=== PATIENT | female | born 1995 | race Caucasian/White ===

== ENCOUNTER → 2018-03-11 | Outpatient (CLI) | payer OTHER ==
[~2018-03-11] MED LIST: AMOX250 PO; CEPH250A PO; CEPH500 PO; CODACE30 PO; DOCU100 PO; FERR325 PO; IBUP400; IBUP600 PO; IBUP800 PO; MEDR150I IM; NAPR375 PO; OXYACE5T PO; PROCODE120 PO; PROM25 PO; RXCEPH500 PO; RXCODACET PO; RXSULTRIDS PO; SULTRIDS PO; SULTRISS; TAMS.4ER PO; Ultram50 MG PO
[2018-03-12 09:24] LABS: Candida species (DNA Probe) Negative (NEGATIVE); G. vaginalis (DNA Probe) Positive (NEGATIVE); T. vaginalis (DNA Probe) Negative (NEGATIVE)
== END ==
LOC: LAB 09:00 → LAB SHORT 09:00
PROVIDERS: Physician Assistant
DX: N39.0 Urinary tract infection, site not specified (principal); N89.8 Other specified noninflammatory disorders of vagina
CPT/HCPCS: 87077; 87086; 87186; 87480; 87510; 87660

== ENCOUNTER → 2018-06-24 | Outpatient (CLI) | payer OTHER ==
[2018-06-27 01:13] LABS: CHLAMYDIA TRACHOMATIS, NAA Negative (Negative); NEISSERIA GONORRHOEAE, NAA Negative (Negative)
== END | disposition home or self-care (01) ==
LOC: LAB SHORT 14:51 → LAB 14:51
PROVIDERS: Advanced Practice Midwife
DX: Z11.3 Encounter for screening for infections with a predominantly sexual mode of transmission (principal)
CPT/HCPCS: 87491; 87591

== ENCOUNTER → 2018-12-05 | Outpatient (CLI) | payer OTHER | END | disposition home or self-care (01) | LOC: LAB SHORT 11:21 → LAB 11:21 | DX: Z34.80 Encounter for supervision of other normal pregnancy, unspecified trimester (principal) | CPT/HCPCS: 87081; 87653 ==

== ENCOUNTER 2018-12-27 16:05 | Inpatient (IN) | payer OTHER ==
[~2018-12-27] VITALS: Ht 153 cm; Wt 0.3 kg
[2018-12-27] MEDS ORDERED: CEPH500 (16:43)
[2018-12-27 16:46] LABS: BASOPHILS ABSOLUTE AUTO 0.04 K/mm3 (0.00-0.23); BASOPHILS PERCENT AUTO 0 % (0-2); EOSINOPHILS ABSOLUTE AUTO 0.15 K/mm3 (0.00-0.68); EOSINOPHILS PERCENT AUTO 1 % (0-6); Hematocrit 29.4 % (33.0-51.0); Hemoglobin 9.7 g/dL (11.5-16.0); IMMATURE GRAN ABSOLUTE AUTO 0.27 K/mm3 (0.00-0.10); IMMATURE GRAN PERCENT AUTO 3 % (0-1); LYMPHOCYTES ABSOLUTE AUTO 1.81 K/mm3 (0.84-5.20); LYMPHOCYTES PERCENT AUTO 17 % (21-46); MONOCYTES ABSOLUTE AUTO 0.94 K/mm3 (0.16-1.47); MONOCYTES PERCENT AUTO 9 % (4-13); Mean Corpuscular HGB 28.5 pg (26.0-34.0); Mean Corpuscular Volume 87 fL (80-100); Mean Platelet Volume 10.4 fL (9.1-12.4); NEUTROPHILS ABSOLUTE AUTO 7.73 K/mm3 (1.96-9.15); NEUTROPHILS PERCENT AUTO 71 % (41-73); Platelet Count 159 K/mm3 (150-400); RDW Coefficient Variation 13.4 % (11.7-14.2); RDW Standard Deviation 41.8 fL (35.1-46.3); White Blood Cell Count 10.94 K/mm3 (4.00-11.30)
--- NOTE | 2018-12-28 09:57 | NUR ---
CONSULT. BABY IS VERY SLEEPY, NOT RESPONDING TO STIMULATION. LESS THAN 6 HOURS OLD. MOM IS EXPERIENCED WITH BF. INSTRUCT/DEMO SELF EBM TO HELP ENTICE BABY TO WAKEN AND FEED. INSTRUCT IN CHANGES TO EXPECT DURING THE FIRST WEEK WITH BABY AND WITH FEEDINGS AND REFERRED TO BF BROCHURE FOR PHOTOS AND INFORMATION. TO CONTINUE SKIN TO SKIN.
[2018-12-29 05:46] LABS: Hematocrit 28.4 % (33.0-51.0); Hemoglobin 9.2 g/dL (11.5-16.0); Mean Corpuscular HGB 28.3 pg (26.0-34.0); Mean Corpuscular HGB Conc 32.4 g/dL (31.5-36.5); Mean Corpuscular Volume 87 fL (80-100); Mean Platelet Volume 10.2 fL (9.1-12.4); Platelet Count 124 K/mm3 (150-400); RDW Coefficient Variation 13.4 % (11.7-14.2); RDW Standard Deviation 42.2 fL (35.1-46.3); Red Blood Cell Count 3.25 M/mm3 (3.80-5.20); White Blood Cell Count 13.77 K/mm3 (4.00-11.30)
--- NOTE | 2018-12-29 14:38 | NUR ---
FOLLOW UP CONSULT. BABY CONTINUES SOMEWHAT SLEEPY, SLOW TO COORDINATE HER SUCK ON A FINGER, STILL HOLDING POSTERIOR TONGUE ELEVATED. MOM HAS SEEN HER EXTEND TONGUE PAST GUMLINE THOUGH. INSTRUCT/DEMO USE OF SHIELD TO ASSIST IN WIDENING HER LATCH, AND SHIELD WEANING AFTER ENGORGEMENT HAS EASED. BABY SUCKED A COUPLE TIMES ON SHIELD AND RETURNED TO SLEEP. MOM WORKING WELL WITH HER. USED SHIELD BRIEFLY WITH FIRST CHILD ALSO. QUESTIONS ANSWERED.
[2018-12-29] MEDS ORDERED: DOCU100 PO (16:30)
[2018-12-29] MEDS ORDERED: IBUP800 PO (16:30)
--- NOTE | 2018-12-29 18:27 | NUR ---
Printed d/c instructions reviewed w/pt. Questions answered to her satisfaciton. No acute changes t/o shift. Pt d/c'd home ambulatory to care of .
== END 2018-12-29 18:20 | disposition home or self-care (01) | DRG 807 ==
LOC: OBS 16:05 → BC 16:06 → OBS 16:10 → BC 16:11
PROVIDERS: ADMIT Advanced Practice Midwife
PROC: 10E0XZZ Delivery of Products of Conception, External Approach (ICD-10-PCS; principal; 2018-12-28)
PROC: 0HQ9XZZ Repair Perineum Skin, External Approach (ICD-10-PCS; 2018-12-28)
DX: O62.3 Precipitate labor (principal); Z37.0 Single live birth; O70.0 First degree perineal laceration during delivery; Z3A.39 39 weeks gestation of pregnancy; Z87.891 Personal history of nicotine dependence; Z88.0 Allergy status to penicillin; Z88.2 Allergy status to sulfonamides
CPT/HCPCS: 36415; 85025; 85027; J1885; J2590; J3010; J7120

== ENCOUNTER → 2019-02-05 | Outpatient (CLI) | payer OTHER ==
[~2019-02-05] MED LIST changes: +CEPH500
[2019-02-05 15:39] LABS: Source, Urine Clean Catch
[2019-02-05 18:25] LABS: Appearance, Urine Turbid (Clear); Bilirubin, Urine Neg (Neg); Blood, Urine 5+ (Neg); Color, Urine Red (P-Yellow); Glucose Qualitative, Urine Neg (Neg); Ketones, Urine Neg (Neg); Leukocyte Esterase, Urine 3+ (Neg); Nitrite, Urine Neg (Neg); Protein, Urine 3+ (Neg); Urobilinogen, Urine NORM (Normal)
[2019-02-05 18:33] LABS: Red Blood Cells, Urine TNTC /hpf (0-2)
[2019-02-05 18:34] LABS: Bacteria Not Seen /hpf; Squamous Epithelial Cells Rare /hpf (Few)
== END | disposition home or self-care (01) ==
LOC: LAB SHORT 15:21 → LAB 15:21
PROVIDERS: Advanced Practice Midwife
DX: Z01.419 Encounter for gynecological examination (general) (routine) without abnormal findings (principal); N20.0 Calculus of kidney; R30.0 Dysuria
CPT/HCPCS: 81001

== ENCOUNTER → 2019-03-26 | Outpatient (CLI) | payer OTHER ==
[2019-03-26 11:53] LABS: Source, Urine Clean Catch
[2019-03-26 13:09] LABS: Bilirubin, Urine Neg (Neg); Blood, Urine 5+ (Neg); Glucose Qualitative, Urine Neg (Neg); Ketones, Urine Neg (Neg); Leukocyte Esterase, Urine 3+ (Neg); Nitrite, Urine Neg (Neg); Protein, Urine 3+ (Neg); Specific Gravity, Urine 1.015 (1.003-1.022); Urobilinogen, Urine NORM (Normal)
[2019-03-26 13:20] LABS: Appearance, Urine Clear (Clear); Color, Urine Yellow (P-Yellow)
[2019-03-26 13:24] LABS: Bacteria Few /hpf; Red Blood Cells, Urine TNTC /hpf (0-2); Squamous Epithelial Cells Not Seen /hpf (Few); White Blood Cells, Urine 25-50 /hpf (0-5); Yeast/Fungi Urine Few /hpf
== END | disposition home or self-care (01) ==
LOC: LAB 11:14 → LAB SHORT 11:14
PROVIDERS: Advanced Practice Midwife
DX: N20.0 Calculus of kidney (principal)
CPT/HCPCS: 81001; 87086

== ENCOUNTER 2019-04-22 09:05 | Day surgery (SDC) | payer OTHER ==
--- NOTE | 2019-04-22 09:43 | NUR ---
14 FR. COUDE GIL PLACED WITHOUT DIFFICULTY PER RADIOLOGY ORDERS. REPORTED OFF THE RADIOLOGY STAFF.
== END 2019-04-22 23:01 | disposition home or self-care (01) ==
LOC: RAD 09:05 → ORD 09:05 → RAD 10:00 → ORD 23:01
DX: N13.70 Vesicoureteral-reflux, unspecified (principal)
CPT/HCPCS: 51600; 74455; Q9967

== ENCOUNTER 2020-09-21 09:38 | Day surgery (SDC) | payer OTHER ==
[~2020-09-21] VITALS: Ht 152.4 cm; Wt 54.8 kg
--- NOTE | 2020-09-21 12:02 | NUR ---
09/21/20 1202 [address] L[address] USED DURING PROCEDURE.
== END 2020-09-21 13:39 | disposition home or self-care (01) ==
LOC: ORSCSDS 09:38
PROVIDERS: Surgery
PROC: 0FT44ZZ Resection of Gallbladder, Percutaneous Endoscopic Approach (ICD-10-PCS; principal; 2020-09-21 10:45)
PROC: BF031ZZ Plain Radiography of Gallbladder and Bile Ducts using Low Osmolar Contrast (ICD-10-PCS; principal; 2020-09-21 10:45)
DX: K80.20 Calculus of gallbladder without cholecystitis without obstruction (principal)
CPT/HCPCS: 74300; 88304; A9270; C1729; J0690; J1100; J2250; J2405; J2704; J3010; J7120

== ENCOUNTER → 2020-11-09 | Outpatient (CLI) | payer OTHER | LOC: LAB 13:12 → LAB SHORT 13:12 | DX: R31.9 Hematuria, unspecified (principal) | CPT/HCPCS: 87086 ==

== ENCOUNTER → 2021-05-24 | Outpatient (CLI) | payer OTHER | END | disposition home or self-care (01) | LOC: LAB SHORT 17:31 → LAB 17:31 | DX: R82.998 Other abnormal findings in urine (principal) | CPT/HCPCS: 87086 ==

== ENCOUNTER → 2021-05-25 | Outpatient (CLI) | payer OTHER ==
[2021-05-26 07:54] LABS: Candida species (DNA Probe) Negative (NEGATIVE); G. vaginalis (DNA Probe) Negative (NEGATIVE); T. vaginalis (DNA Probe) Negative (NEGATIVE)
== END | disposition home or self-care (01) ==
LOC: LAB SHORT 14:51 → LAB 14:51
PROVIDERS: Nurse Practitioner Family
DX: R30.9 Painful micturition, unspecified (principal)
CPT/HCPCS: 87070; 87205; 87480; 87510; 87660

== ENCOUNTER → 2021-06-07 | Outpatient (CLI) | payer OTHER | LOC: LAB SHORT 19:59 → LAB 19:59 | DX: N39.0 Urinary tract infection, site not specified (principal); Z88.0 Allergy status to penicillin; Z88.1 Allergy status to other antibiotic agents; Z88.2 Allergy status to sulfonamides | CPT/HCPCS: 87077; 87086; 87186 ==

== ENCOUNTER → 2022-08-13 | Outpatient (CLI) | payer OTHER | LOC: LAB 10:28 → LAB SHORT 10:28 | DX: R35.0 Frequency of micturition (principal) | CPT/HCPCS: 87077; 87086; 87186 ==

== ENCOUNTER → 2022-12-06 | Outpatient (CLI) | payer OTHER | END | disposition home or self-care (01) | LOC: LAB SHORT 14:43 | DX: R30.0 Dysuria (principal) | CPT/HCPCS: 87077; 87086; 87186 ==

== ENCOUNTER → 2023-02-13 | Outpatient (CLI) | payer OTHER ==
[2023-02-13 13:22] LABS: BASOPHILS ABSOLUTE AUTO 0.04 K/mm3 (0.00-0.23); BASOPHILS PERCENT AUTO 0 % (0-2); EOSINOPHILS ABSOLUTE AUTO 0.05 K/mm3 (0.00-0.68); EOSINOPHILS PERCENT AUTO 1 % (0-6); Hematocrit 38.8 % (33.0-51.0); Hemoglobin 13.3 g/dL (11.5-16.0); IMMATURE GRAN ABSOLUTE AUTO 0.04 K/mm3 (0.00-0.10); IMMATURE GRAN PERCENT AUTO 0 % (0-1); LYMPHOCYTES ABSOLUTE AUTO 2.54 K/mm3 (0.84-5.20); LYMPHOCYTES PERCENT AUTO 28 % (21-46); MONOCYTES ABSOLUTE AUTO 0.73 K/mm3 (0.16-1.47); MONOCYTES PERCENT AUTO 8 % (4-13); Mean Corpuscular HGB 27.8 pg (26.0-34.0); Mean Corpuscular HGB Conc 34.3 g/dL (31.5-36.5); Mean Corpuscular Volume 81 fL (80-100); Mean Platelet Volume 10.1 fL (9.1-12.4); NEUTROPHILS PERCENT AUTO 63 % (41-73); Platelet Count 257 K/mm3 (150-400); RDW Coefficient Variation 12.8 % (11.7-14.2); Red Blood Cell Count 4.79 M/mm3 (3.80-5.20)
[2023-02-13 13:43] LABS: Albumin, Blood 3.9 g/dL (3.4-5.0); Bilirubin, Total 1.2 mg/dL (0.1-1.0); Bun/Creatinine Ratio 9.1 (12.0-20.0); Calcium, Blood 9.5 mg/dL (8.5-10.1); Creatinine, Blood 1.1 mg/dL (0.40-1.00); Globulin, Blood 3.9 g/dL (2.2-4.0); Potassium, Blood 3.8 mmol/L (3.5-5.5); Thyroid Stimulating Hormone 1.476 uIU/mL (0.360-4.800); Total Protein, Blood 7.8 g/dL (6.4-8.2)
== END | disposition home or self-care (01) ==
LOC: LAB SHORT 13:18 → LAB 13:18
PROVIDERS: Chiropractor
DX: R00.2 Palpitations (principal)
CPT/HCPCS: 80053; 84443; 84484; 85025

== ENCOUNTER → 2025-06-24 | Outpatient (CLI) | payer OTHER | END | disposition home or self-care (01) | LOC: LAB SHORT 17:41 → LAB 17:41 | PROVIDERS: Family Medicine | DX: Z12.4 Encounter for screening for malignant neoplasm of cervix (principal) | CPT/HCPCS: 87624; G0145 ==

== ENCOUNTER → 2025-07-07 | Outpatient (CLI) | payer OTHER ==
[2025-07-09 15:00] LABS: CALPROTECTIN,FECAL 18 ug/g (<=49)
== END ==
LOC: LAB SHORT 11:34 → LAB 11:34
PROVIDERS: Family Medicine
DX: R10.13 Epigastric pain (principal)
CPT/HCPCS: 83993

== ENCOUNTER 2025-08-11 13:10 | Day surgery (SDC) | payer OTHER ==
[~2025-08-11] VITALS: Ht 152.4 cm; Wt 43.8 kg
[~2025-08-11 13:10] MED LIST changes: +Glycopyrrolate 0.2 MG/ML 1MLVIAL ONE; +Ondansetron HCl 2 MG / ML 2ML Vial ONE; +ePHEDrine Sulfate 50 MG/ML 1ML Injection ONE
[2025-08-11] MEDS ORDERED: Adderall 5mg tab5 MG (14:10)
[2025-08-11] MEDS ORDERED: Midazolam HCL 1 MG/ML 5MLVIAL ONE (16:13)
[2025-08-11 17:40] VITALS: BP 108/81
--- NOTE | 2025-08-11 17:44 | NUR ---
08/11/25 1747 THEA GAN SLIGHT SORE THROAT. ABLE TO DRINK WITHOUT DIFFICULTY. PARTNER, BEBETO IN TO REVIEW PROCEDURE WITH DR RESENDIZ AND PATIENT. PICTURES SENT HOME WITH PT.
== END 2025-08-11 17:40 | disposition home or self-care (01) ==
LOC: ORSCSDS 13:10
PROVIDERS: Internal Medicine Gastroenterology
PROC: 0DB78ZX Excision of Stomach, Pylorus, Via Natural or Artificial Opening Endoscopic, Diagnostic (ICD-10-PCS; principal; 2025-08-11 14:45)
PROC: 0DB98ZX Excision of Duodenum, Via Natural or Artificial Opening Endoscopic, Diagnostic (ICD-10-PCS; principal; 2025-08-11 14:45)
PROC: 0DBB8ZX Excision of Ileum, Via Natural or Artificial Opening Endoscopic, Diagnostic (ICD-10-PCS; principal; 2025-08-11 14:45)
PROC: 0DBE8ZX Excision of Large Intestine, Via Natural or Artificial Opening Endoscopic, Diagnostic (ICD-10-PCS; principal; 2025-08-11 14:45)
DX: R10.84 Generalized abdominal pain (principal); R19.4 Change in bowel habit; K62.5 Hemorrhage of anus and rectum; R63.4 Abnormal weight loss; F32.A Depression, unspecified; Z79.899 Other long term (current) drug therapy; Z87.891 Personal history of nicotine dependence
CPT/HCPCS: 88305; 88342; J0461; J2003; J2250; J2405; J2704; J7120